=== PATIENT | female | born 1950 | race Caucasian/White ===

== ENCOUNTER → 2020-05-09 06:52 | Outpatient (CLI) | payer MEDICARE, SELFPAY ==
[2020-04-20 15:09] VITALS: BMI 25.7
--- NOTE | 2020-05-09 06:55 | ECHOD_ITS ---
Reason For Study: Dyspnea/SOB Procedure This was a 2D Doppler, Color Flow transthoracic echocardiogram. The study was technically difficult. Exam performed in department. Left Ventricle Normal LV size. Left ventricular systolic function is normal. The estimated ejection fraction is 65 %. No evidence for diastolic dysfunction. No regional wall motion abnormalities noted. Right Ventricle Normal RV size. Normal systolic function. Atria Normal left atrium. Normal right atrium. No doppler evidence for ASD. Mitral Valve There is no mitral annular calcification. Mild diffuse mitral valve thickening. Mild (1+) mitral valve insufficiency. Tricuspid Valve Normal tricuspid valve. Trivial tricuspid valve insufficiency. Unable to estimate RV systolic pressure/pulmonary artery pressure due to technically difficult study. Aortic Valve Trisinus/trileaflet aortic valve. Normal aortic valve. Pulmonic Valve The pulmonic valve is not well visualized. Great Vessels The aortic root is not well visualized. Pericardium/Pleural No pericardial effusion. MMode/2D Measurements & Calculations LVIDd: 4.4 cm IVSd: 0.72 cm LAV(MOD-bp): 34.3 ml LVIDs: 2.3 cm LVPWd: 0.93 cm LAV(MOD-bp) Indexed: 20.9 ml/m2 RVDd: 3.0 cm FS: 47.4 % LAV(MOD-sp2): 37.1 ml LAV(MOD-sp4): 27.6 ml LA A4 area: 11.7 cm2 RA A4 area: 13.3 cm2 Time Measurements MV dec time: 0.22 sec Doppler Measurements & Calculations MV E max santosh: 71.3 cm/sec Lat Peak E' Santosh: 11.6 cm/sec Med Peak E' Santosh: 8.1 cm/sec MV A max santosh: 80.0 cm/sec E/E' lat: 6.1 E/E' med: 8.8 MV E/A: 0.89 MV V2 max: 81.3 cm/sec MV P1/2t max santosh: 70.1 cm/sec Ao V2 max: 104.1 cm/sec MV max P.6 mmHg MV P1/2t: 57.2 msec Ao max P.3 mmHg MV V2 mean: 49.0 cm/sec MV dec slope: 358.6 cm/sec2 MV mean P.1 mmHg MV V2 VTI: 22.0 cm MVA(P1/2t): 3.8 cm2 LV V1 max: 95.5 cm/sec PA V2 max: 107.0 cm/sec LV V1 max P.6 mmHg Interpretation Summary The study was technically difficult. Left ventricular systolic function is normal. The estimated ejection fraction is 65 %. Mild diffuse mitral valve thickening. Mild (1+) mitral valve insufficiency. Trivial tricuspid valve insufficiency. Unable to estimate RV systolic pressure/pulmonary artery pressure due to technically difficult study. No evidence for diastolic dysfunction. Ordering Physician: Otis Perdue Referring Physician: Ann Marie Santillan M.D. Performed By: Leonel Pace RCS
--- NOTE | 2020-05-09 13:51 | STRESSREP_ITS ---
Stress Test Report Date: 05-09-2020 Procedure: Pharmacologic stress nuclear imaging study Indications: Shortness of breath/dyspnea on exertion; non-CAD related cardiomyopathy Consent: Per the patient Procedure: The patient underwent pharmacologic (Regadenoson) evaluation with a peak heart rate of 104 beats per minute (68 %predicted maximal heart rate) and a peak blood pressure of 134/82 mmHg. The baseline ECG demonstrated sinus rhythm; poor R wave progression; anteroseptal AR of indeterminate age cannot be excluded. The peak pharmacologic ECG demonstrated no obvious ECG changes. There were no cardiac dysrhythmias pretest, during pharmacologic infusion, or recovery. There was no complaint of chest discomfort during pharmacologic infusion or recovery. The examination was discontinued secondary to completion of protocol. Impression: 1. Pharmacologic (Regadenoson) evaluation 2. Peak pharmacologic ECG with no obvious ECG changes. 3. There were no cardiac dysrhythmias pretest, during pharmacologic infusion, or recovery. 4. Nuclear images pending Myocardial perfusion imaging study: Technique: The patient was injected with 11.4 millicuries of technetium 99m Cardiolite and subsequently rest SPECT Cardiolite nuclear imaging was obtained in the horizontal long, vertical long, and short axis views. The patient underwent pharmacologic (Regadenoson) evaluation with a peak heart rate of 104 beats per minute (68 % percent predicted maximal heart rate) and a peak blood pressure of 134/82 mmHg. The patient was injected with 30.0 millicuries of technetium 99m Cardiolite and subsequently stress SPECT Cardiolite nuclear imaging was obtained in the horizontal long, vertical long, and short axis views. A gated Cardiolite study at peak stress was obtained. Interpretation: Rest and stress SPECT Cardiolite nuclear imaging status post realignment, normalization, and attenuation correction demonstrate relative uniform tracer uptake and myocardial perfusion appearing within normal limits. There is end systolic thickening and brightening. The gated Cardiolite study demonstrates myocardial thickening and inward wall motion. The reported LVEF is 86 %. Impression: 1. Rest and stress SPECT Cardiolite nuclear imaging demonstrate relative uniform tracer uptake and myocardial perfusion appearing within normal limits. 2. The gated Cardiolite study reports an LVEF of 86 %. This note was generated with [employer] software. It may contain incorrect words, spelling, and punctuation that were not noted in checking the note before signing.
== END ==
PROVIDERS: PCP Internal Medicine; Referring Provider Internal Medicine Cardiovascular Disease; Visit Provider Internal Medicine Cardiovascular Disease
DX: R06.09 Other forms of dyspnea (principal); R06.02 Shortness of breath
CPT/HCPCS: 78452; 93017; 93306; A9500; A4216; J2785

== ENCOUNTER 2023-11-17 15:16 | Outpatient (CLI) | payer MEDICARE, SELFPAY ==
[2023-11-17 17:33] LABS: Hematocrit 42.7 % (37-47); Hemoglobin 14.1 g/dL (12.0-15.0); Mean Corpuscular Hgb 31.1 pg (27.0-32.0); Mean Corpuscular Volume 94.1 fL (81-99); Mean Platelet Vol. 9.8 fl (6.2-12.0); Platelet Count 308 K/mm3 (150-450); RBC Distribution Width CV 13.2 % (11.6-14.6); RBC Distribution Width SD 45.5 fl (35.1-43.9); Red Blood Count 4.54 M/mm3 (4.2-5.4); White Blood Count 11.8 K/mm3 (4.4-11.0)
[2023-11-17 17:54] LABS: Erythrocyte Sedimentation Rate 19 mm/hr (0-30)
[2023-11-17 18:39] LABS: Vitamin B12 268 pg/mL (211-911); Vitamin D,25 Hydroxy 43.1 ng/mL
[2023-11-17 18:55] LABS: AST(SGOT) 16 U/L (15-37); Alanine Aminotransfer ALT/SGPT 17 U/L (13-56); Albumin, Serum 3.6 g/dL (3.2-5.0); Alkaline Phosphatase 79 U/L (45-117); Anion Gap 5 (5-15); BUN 12 mg/dL (7-18); BUN/Creat Ratio 14.1 RATIO (10-20); CRP < 2.90 mg/L (0.0-3.0); Chloride 106 mmol/L (98-107); Creatinine, Serum 0.85 mg/dL (0.55-1.02); EST Glomerular Filtration Rate 70 mL/min (>60); Est Glom Filt Rate - Afr Amer 84 mL/min (>60); Globulin 3.7 g/dL (2.2-4.2); Glucose 87 mg/dL (74-106); Potassium 3.7 mmol/L (3.5-5.1); Protein, Total 7.3 g/dL (6.4-8.2); Rheumatoid Factor < 10.0 IU/mL (<15); Sodium Level 140 mmol/L (136-145); Thyroid Stim Hormone (TSH) 2.35 uIU/mL (0.358-3.74)
== END 2023-11-17 23:59 | disposition home or self-care (01) ==
PROVIDERS: PCP Internal Medicine; Referring Provider Internal Medicine; Visit Provider Internal Medicine
DX: R53.83 Other fatigue (principal); E55.9 Vitamin D deficiency, unspecified
CPT/HCPCS: 36415; 80053; 82306; 82607; 84443; 85027; 85652; 86140; 86431

== ENCOUNTER → 2023-12-19 | Outpatient (CLI) | payer MEDICARE, SELFPAY ==
--- NOTE | 2023-12-19 13:55 | CDU_ITS ---
Reason For Study: Carotid stenosis Rt. Velocities/BP Lt. Velocities/BP Prox CCA 70.2/18.2 cm/sec. Prox CCA 80.5/20.3 cm/sec. Mid CCA 68.3/18.2 cm/sec. Mid CCA 75.3/20.3 cm/sec. Dist CCA 60.7/17.3 cm/sec. Dist CCA 57.8/17.7 cm/sec. Prox ICA 36.2/14.5 cm/sec. Prox ICA 41.8/12.8 cm/sec. Mid ICA 71.1/29.6 cm/sec. Mid ICA 52/19.6 cm/sec. Dist ICA 75.9/31.5 cm/sec. Dist ICA 72.8/29.3 cm/sec. Rt. ICA/CCA = 1.11. Lt. ICA/CCA = 0.97. Prox ECA 56/9.7 cm/sec. Prox ECA 57.8/14.2 cm/sec. Rt. Vert. 29.4/10.9 cm/sec. Lt. Vert. 35.2/9.7 cm/sec. Right Extracranial There is homogeneous, smooth atherosclerotic plaque noted in the right common carotid artery. There is heterogeneous, irregular atherosclerotic plaque noted in the right internal carotid artery. There is intimal thickening but no significant atherosclerotic plaque noted in the right external carotid artery. Antegrade flow is noted in the right vertebral artery. Left Extracranial There is homogeneous, smooth atherosclerotic plaque noted in the left common carotid artery. There is homogeneous, smooth atherosclerotic plaque noted in the left internal carotid artery. The left internal carotid artery is very tortuous. There is intimal thickening but no significant atherosclerotic plaque noted in the left external carotid artery. Antegrade flow is noted in the left vertebral artery. Procedure This is a Carotid Duplex examination using B-mode, color flow and specral Doppler. Carotid Duplex [id number]. Exam performed in department. VL/Carotid Duplex Ultrasound Interpretation Summary Mild (<50%) stenosis right extracranial internal carotid. Mild (<50%) stenosis left extracranial internal carotid. Patent and antegrade vertebrals bilaterally. Ordering Physician: Ann Marie Santillan Referring Physician: Ann Marie Santillan Performed By: Beth Portillo RVT
== END | disposition home or self-care (01) ==
LOC: CVS 13:54
PROVIDERS: PCP Internal Medicine; Referring Provider Internal Medicine; Visit Provider Internal Medicine
DX: I65.23 Occlusion and stenosis of bilateral carotid arteries (principal)
CPT/HCPCS: 93880